=== PATIENT | female | born 1955 | race Caucasian/White ===

== ENCOUNTER 2018-10-16 02:35 | Emergency (ER) | payer MEDICARE, BC ==
--- NOTE | 2018-10-16 03:15 | EDM.PDOC ---
"ED HPI GENERAL MEDICAL PROBLEM - General Chief Complaint: Chest Pain Stated Complaint: CHEST PAINS Time Seen by Provider: 10/16/18 03:04 Source of Information: Reports: Patient History Limitations: Reports: No Limitations - History of Present Illness INITIAL COMMENTS - FREE TEXT/NARRATIVE: Ed with c/o feeling like heart racing, checked BP and 140/ and HR 90 usually HR in 70's. pain left scapula. No chest pain at present , took aspirin at home. No nausea k, seating no SOB or weakness. Also reports that mowing and struck head on large tree branch No loss of consciousness but whipped neck back. 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 No weakness of extremities or tingling no numbenss Left Chest Pain Score (Numeric/FACES): 4 Shoulder Pain Score (Numeric/FACES): 4 - Related Data Allergies Allergy/AdvReac Type Severity Reaction Status Date / Time amoxicillin Allergy Hives Verified 10/16/18 02:56 Home Meds: Home Meds . [No Known Home Meds] 10/16/18 [History] ED ROS GENERAL - Review of Systems Review Of Systems: ROS reveals no pertinent complaints other than HPI. Constitutional: Reports: No Symptoms HEENT: Reports: No Symptoms Respiratory: Denies: Shortness of Breath, Cough Cardiovascular: Reports: Chest Pain, Palpitations Endocrine: Reports: No Symptoms GI/Abdominal: Reports: No Symptoms : Reports: No Symptoms Musculoskeletal: Reports: Neck Pain (resolved), Other (left scapular) Skin: Reports: No Symptoms Neurological: Reports: No Symptoms ED EXAM, GENERAL - Physical Exam Exam: See Below Exam Limited By: No Limitations General Appearance: Alert, No Apparent Distress, Anxious Eye Exam: Bilateral Eye: PERRL Ears: Normal External Exam Nose: Normal Inspection Throat/Mouth: Normal Inspection Head: Atraumatic, Normocephalic Neck: Full Range of Motion. No: Limited Range of Motion, Tender Lateral, Tender Midline Respiratory/Chest: No Respiratory Distress, Lungs Clear, Normal Breath Sounds Cardiovascular: Normal Peripheral Pulses, Regular Rate, Rhythm, No Edema. No: Tachycardia GI/Abdominal: Normal Bowel Sounds, Soft Back Exam: Normal Inspection Extremities: Normal Inspection, Normal Range of Motion Neurological: Alert, Oriented, Normal Cognition, Normal Gait, No Motor/Sensory Deficits Skin Exam: Warm, Dry, Intact, Normal Color Course - Vital Signs Last Recorded V/S: Last Vital Signs Temp 98 F 10/16/18 04:59 Pulse 60 10/16/18 06:29 Resp 14 10/16/18 06:29 BP 104/51 L 10/16/18 06:29 Pulse Ox 100 10/16/18 06:29 - Orders/Labs/Meds Orders: Active Orders 24 hr Category Date Time Status EKG 12 Lead [EKG Documentation Completion] [RC] URGENT Care 10/16/18 03:20 Active EKG Documentation Completion [RC] URGENT Care 10/16/18 06:45 Active CXR [Chest 1V Frontal] [CR] Urgent Exams 10/16/18 02:59 Taken Cervical Spine wo Cont [CT] Urgent Exams 10/16/18 03:31 Taken Labs: Laboratory Tests 10/16/18 10/16/18 10/16/18 Range/Units 02:45 02:45 02:45 WBC 5.4 (5.0-10.0) 10^3/uL RBC 4.22 (4.2-5.4) 10^6/uL Hgb 13.5 (12.0-16.0) g/dL Hct 39.5 (37.0-47.0) % MCV 93.6 (80-100) fL MCH 32.0 (27.0-34.0) pg MCHC 34.2 (33.0-35.0) g/dL Plt Count 235 (150-450) 10^3/uL Neut % (Auto) 48.0 (42.2-75.2) % Lymph % (Auto) 43.3 (20.5-50.1) % Summers % (Auto) 6.8 (2-8) % Eos % (Auto) 1.5 (1.0-3.0) % Baso % (Auto) 0.4 (0.0-1.0) % PT 9.8 (9.0-12.0) SEC INR 1.0 (0.9-1.2) D-Dimer, Quantitative < 100 (0-400) ng/mL Sodium 140 (135-145) mmol/L Potassium 3.3 L (3.6-5.0) mmol/L Chloride 104 (101-111) mmol/L Carbon Dioxide 27.0 (21.0-31.0) mmol/L Anion Gap 12.3 BUN 19 H (7-18) mg/dL Creatinine 0.8 (0.6-1.3) mg/dL Est Cr Clr Drug Dosing 57.99 mL/min Estimated GFR (MDRD) > 60 BUN/Creatinine Ratio 23.75 Glucose 99 (74-105) mg/dL Calcium 9.0 (8.4-10.2) mg/dl Total Bilirubin 0.5 (0.2-1.0) mg/dL AST 24 (10-42) IU/L ALT 15 (10-60) IU/L Alkaline Phosphatase 77 (42-121) IU/L CK-MB (CK-2) (0.4-4.7) ng/mL Troponin I < 0.02 (0.00-0.02) ng/ml Total Protein 6.5 L (6.7-8.2) g/dl Albumin 4.1 (3.2-5.5) g/dl Globulin 2.4 Albumin/Globulin Ratio 1.71 Amylase 72 (28-100) U/L Lipase 42 (22-51) U/L 10/16/18 10/16/18 Range/Units 02:45 06:38 WBC (5.0-10.0) 10^3/uL RBC (4.2-5.4) 10^6/uL Hgb (12.0-16.0) g/dL Hct (37.0-47.0) % MCV (80-100) fL MCH (27.0-34.0) pg MCHC (33.0-35.0) g/dL Plt Count (150-450) 10^3/uL Neut % (Auto) (42.2-75.2) % Lymph % (Auto) (20.5-50.1) % Summers % (Auto) (2-8) % Eos % (Auto) (1.0-3.0) % Baso % (Auto) (0.0-1.0) % PT (9.0-12.0) SEC INR (0.9-1.2) D-Dimer, Quantitative (0-400) ng/mL Sodium (135-145) mmol/L Potassium (3.6-5.0) mmol/L Chloride (101-111) mmol/L Carbon Dioxide (21.0-31.0) mmol/L Anion Gap BUN (7-18) mg/dL Creatinine (0.6-1.3) mg/dL Est Cr Clr Drug Dosing mL/min Estimated GFR (MDRD) BUN/Creatinine Ratio Glucose (74-105) mg/dL Calcium (8.4-10.2) mg/dl Total Bilirubin (0.2-1.0) mg/dL AST (10-42) IU/L ALT (10-60) IU/L Alkaline Phosphatase (42-121) IU/L CK-MB (CK-2) 2.60 (0.4-4.7) ng/mL Troponin I < 0.02 (0.00-0.02) ng/ml Total Protein (6.7-8.2) g/dl Albumin (3.2-5.5) g/dl Globulin Albumin/Globulin Ratio Amylase (28-100) U/L Lipase (22-51) U/L Meds: Medications Discontinued Medications Generic Name Dose Route Start Last Admin Trade Name Freq PRN Reason Stop Dose Admin Acetaminophen 650 mg 10/16/18 04:40 10/16/18 04:44 Tylenol PO 10/16/18 04:41 650 mg NOW ONE Administration Potassium Chloride 20 meq 10/16/18 03:31 10/16/18 03:41 Klor-Con 10 PO 10/16/18 03:32 20 meq ONETIME ONE Administration - Radiology Interpretation Free Text/Narrative:: [facility] Final Radiology Report Call: [phone] assistance Online chat: [email or web address] Name: LILLIANA LOPEZ Age: 63Years F Date: 10/16/2018 SSN: -- : 1955 Study: CT SPINE CERVICAL WO Requesting Physician: BIANKA SNELL Images: [id number] Addl Studies: Provided Clinical History: Contrast: Without Contrast Medium: Contrast Amount: Contrast Method: Page 1 of 2 EXAM: CT Cervical Spine Without Contrast EXAM DATE/TIME: 10/16/2018 3:54 AM CLINICAL HISTORY: 63 years old, female; Other: Neck pain, 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 Radiation optimization: All CT scans at this facility use at least one of these dose optimization techniques: automated exposure control; mA and/or kV adjustment per patient size (includes targeted exams where dose is matched to clinical indication); or iterative reconstruction. COMPARISON: No relevant prior studies available. FINDINGS: Vertebrae: Vertebral body heights are maintained. The dens is intact. No acute fracture. Cervical spine alignment is normal. Discs/Spinal canal/Neural foramina: There is mild degenerative change at the C1- C2 interval. Moderate left and mild right facet hypertrophy C3-C6. Mild disc space narrowing C5-C6 and C6 C7 with small marginal osteophytes. Soft tissues: Unremarkable. Lungs: Lung apices are normal. IMPRESSION: No acute findings. LILLIANA LOPEZ | Final Radiology Report CONFIDENTIALITY STATEMENT This report is intended only for use by the referring physician, and only in accordance with law. If you received this in error, call [phone]. Page 2 of 2 Thank you for allowing us to participate in the care of your patient. Dictated and Authenticated by: Clemencia Caal MD 10/16/2018 4:28 AM Central Time ([place] & [place]) [facility] Final Radiology Report Call: [phone] assistance Online chat: [email or web address] Name: LILLIANA LOPEZ Age: 63Years F Date: 10/16/2018 SSN: -- : 1955 Study: XR CHEST 1 VIEW FRONTAL Requesting Physician: BIANKA SNELL Images: 1 Addl Studies: Provided Clinical History: Contrast: Contrast Medium: Contrast Amount: Contrast Method: CONFIDENTIALITY STATEMENT This report is intended only for use by the referring physician, and only in accordance with law. If you received this in error, call [phone]. Page 1 of 1 EXAM: XR Chest, 1 View EXAM DATE/TIME: 10/16/2018 3:38 AM CLINICAL HISTORY: 63 years old, female; Chest pain; Type not specified TECHNIQUE: Imaging protocol: XR of the chest, 1 view. COMPARISON: No relevant prior studies available. FINDINGS: Lungs: Unremarkable. No consolidation. Pleural space: Unremarkable. No pleural effusion. No pneumothorax. Heart/Mediastinum: Unremarkable. No cardiomegaly. Bones/joints: Unremarkable. IMPRESSION: No acute findings. Thank you for allowing us to participate in the care of your patient. Dictated and Authenticated by: Clemencia Caal MD 10/16/2018 4:21 AM Central Time ([place] & [place]) - Re-Assessments/Exams Free Text/Narrative Re-Assessment/Exam: 10/16/18 07:25 Results discussed with Patient. Repeat troponin pending if negative, discharge home and follow up with primary care. Departure - Departure Time of Disposition: 07:26 Disposition: Home, Self-Care 01 Condition: Good Clinical Impression: Hypokalemia, Palpitations Left scapulocostal sprain Qualifiers: Encounter type: initial encounter Qualified Code(s): S43.82XA - Sprain of other specified parts of left shoulder girdle, initial encounter Cervical muscle strain Qualifiers: Encounter type: initial encounter Qualified Code(s): S16.1XXA - Strain of muscle, fascia and tendon at neck level, initial encounter Forms: ED Department Discharge Additional Instructions: light activity today. follow up in clinic recheck potassium follow up if recurrent chest sustained heart rate greater than 100, elevated blood pressure, dizziness. tylenol 650mg every 4 hours as needed for discomfort - My Orders Last 24 Hours: My Active Orders 10/16/18 02:59 CXR [Chest 1V Frontal] [CR] Urgent 10/16/18 03:20 EKG 12 Lead [EKG Documentation Completion] [RC] URGENT 10/16/18 03:31 Cervical Spine wo Cont [CT] Urgent 10/16/18 06:45 EKG Documentation Completion [RC] URGENT - Assessment/Plan Last 24 Hours: My Active Orders 10/16/18 02:59 CXR [Chest 1V Frontal] [CR] Urgent 10/16/18 03:20 EKG 12 Lead [EKG Documentation Completion] [RC] URGENT 10/16/18 03:31 Cervical Spine wo Cont [CT] Urgent 10/16/18 06:45 EKG Documentation Completion [RC] URGENT"
[2018-10-16 03:16] LABS: ANION GAP 12.3; CHLORIDE,CL 104 mmol/L (101-111); SODIUM,NA 140 mmol/L (135-145)
[2018-10-16] MEDS ORDERED: Potassium Chloride 10 MEQ Tab.ER PO ONE (03:31)
[2018-10-16] MEDS ORDERED: Acetaminophen 325 MG Tab PO ONE (04:40)
== END 2018-10-16 09:30 | disposition home or self-care (01) ==
LOC: DL.ED 02:35
DX: S43.82XA Sprain of other specified parts of left shoulder girdle, initial encounter (principal); S16.1XXA Strain of muscle, fascia and tendon at neck level, initial encounter; R00.2 Palpitations; E87.6 Hypokalemia; Z88.1 Allergy status to other antibiotic agents; W22.8XXA Striking against or struck by other objects, initial encounter
CPT/HCPCS: 36415; 71045; 72125; 80053; 82150; 82553; 83690; 84484; 85025; 85379; 85610; 93005; 99285-25; A9270-GY

== ENCOUNTER 2020-03-20 19:04 | Emergency (ER) | payer MEDICARE, BC ==
--- NOTE | 2020-03-20 19:13 | EDM.PDOC ---
ED HPI GENERAL MEDICAL PROBLEM - General Stated Complaint: AMBULANCE Time Seen by Provider: 03/20/20 19:07 Source of Information: Reports: Patient History Limitations: Reports: No Limitations - History of Present Illness INITIAL COMMENTS - FREE TEXT/NARRATIVE: states pos covid 1-14, had 10 days quarantine went back to work and Sx she had from covid returned. CP/SOB/bilateral thigh-leg heaviness and aches. did get CAT chest with contrast showing no P.E but nothing for legs. tonight felt worse so called EMS. Bilateral Lower Leg Pain Score (Numeric/FACES): 4 - Related Data Allergies Allergy/AdvReac Type Severity Reaction Status Date / Time amoxicillin Allergy Hives Verified 10/16/18 02:56 Home Meds: Home Meds . 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 ED EXAM, GENERAL - Physical Exam Exam: See Below Exam Limited By: No Limitations General Appearance: Alert, WD/WN, Mild Distress, Other (upset) Ears: Hearing Grossly Normal Throat/Mouth: Normal Voice, No Airway Compromise Head: Atraumatic Neck: Non-Tender, Full Range of Motion Respiratory/Chest: No Respiratory Distress, Lungs Clear, Normal Breath Sounds Cardiovascular: Regular Rate, Rhythm GI/Abdominal: Soft, Non-Tender (Female) Exam: Deferred Rectal (Female) Exam: Deferred Back Exam: Full Range of Motion Extremities: Normal Range of Motion, Non-Tender, Other (c/o achyness) Neurological: Alert, Oriented, Normal Cognition, No Motor/Sensory Deficits Psychiatric: Anxious Skin Exam: Warm, Dry, Normal Color Lymphatic: No Adenopathy Course - Vital Signs Last Recorded V/S: Last Vital Signs Temp 35.9 C L 03/20/20 19:12 Pulse 115 H 03/20/20 19:12 Resp 14 01/31/21 19:12 BP 117/61 03/20/20 19:12 Pulse Ox 100 03/20/20 19:12 - Orders/Labs/Meds Labs: Laboratory Tests 03/20/20 03/20/20 03/20/20 Range/Units 19:16 19:16 19:16 WBC 6.3 (5.0-10.0) 10^3/uL RBC 4.28 (4.2-5.4) 10^6/uL Hgb 13.5 (12.0-16.0) g/dL Hct 39.1 (37.0-47.0) % MCV 91.4 (80-100) fL MCH 31.5 (27.0-34.0) pg MCHC 34.5 (33.0-35.0) g/dL Plt Count 313 D (150-450) 10^3/uL Neut % (Auto) 67.2 (42.2-75.2) % Lymph % (Auto) 25.6 (20.5-50.1) % Gilchrist % (Auto) 6.5 (2-8) % Eos % (Auto) 0.5 L (1.0-3.0) % Baso % (Auto) 0.2 (0.0-1.0) % PT 10.8 (9.0-12.0) SEC INR 1.1 (0.9-1.2) APTT 25.7 (22.0-34.0) SEC D-Dimer, Quantitative 130 (0-400) ng/mL Sodium 138 (136-145) mmol/L Potassium 3.5 (3.5-5.1) mmol/L Chloride 102 (98-107) mmol/L Carbon Dioxide 27 (21-32) mmol/L Anion Gap 12.5 (7-13) mEq/L BUN 18 (7-18) mg/dL Creatinine 0.74 (0.55-1.02) mg/dL Est Cr Clr Drug Dosing 61.18 mL/min Estimated GFR (MDRD) > 60 BUN/Creatinine Ratio 24.3 (No establ ref range) Glucose 100 H (74-99) mg/dL Calcium 9.4 (8.5-10.1) mg/dL Total Bilirubin 0.4 (0.2-1.0) mg/dL AST 18 (15-37) U/L ALT 26 (14-59) U/L Alkaline Phosphatase 90 (46-116) U/L Troponin I < 0.017 (0.000-0.056) ng/mL Total Protein 7.0 (6.4-8.2) g/dL Albumin 4.0 (3.4-5.0) g/dL Globulin 3.0 Albumin/Globulin Ratio 1.3 - Re-Assessments/Exams Free Text/Narrative Re-Assessment/Exam: 03/20/20 21:05 results discussed with pt. Departure - Departure Time of Disposition: 21:05 Disposition: Home, Self-Care 01 Condition: Good Clinical Impression: Leg pain, bilateral, Reaction, situational, acute, to stress, Post-COVID syndrome Forms: ED Department Discharge Additional Instructions: 1) rest and try heat or massage to sore areas 2) follow up with clinic 3) recheck if there is any change or concern Sepsis Event Note (ED) - Focused Exam Vital Signs: Vital Signs Temp Pulse Resp BP Pulse Ox 03/20/20 19:12 35.9 C L 115 H 14 117/61 100
[2020-03-20 19:43] LABS: PTT,PARTIAL THROMBOPLSTIN TIME 25.7 SEC (22.0-34.0)
[2020-03-20 19:45] LABS: ANION GAP 12.5 mEq/L (7-13); CHLORIDE,CL 102 mmol/L (98-107); SODIUM,NA 138 mmol/L (136-145)
--- NOTE | 2020-03-20 20:42 | US ---
PROCEDURE INFORMATION: Exam: US Duplex Lower Extremity Veins, Bilateral Exam date and time: 03/20/2020 7:42 PM Age: 64 years old Clinical indication: Pain; Leg, upper; Bilateral; Additional info: Dvt TECHNIQUE: Imaging protocol: Real-time duplex ultrasound of the extremities with 2-D leonardo scale, color Doppler flow and spectral waveform analysis with image documentation. Complete exam focused on the bilateral lower extremity veins. Total images: 54 COMPARISON: No relevant prior studies available. FINDINGS: Right deep veins: Unremarkable. The common femoral, femoral, proximal profunda femoral and popliteal veins are patent without thrombus. Normal Doppler waveforms. Normal compressibility and/or augmentation response. Right superficial veins: Saphenofemoral junction is patent without thrombus. Left deep veins: Unremarkable. The common femoral, femoral, proximal profunda femoral and popliteal veins are patent without thrombus. Normal Doppler waveforms. Normal compressibility and/or augmentation response. Left superficial veins: Saphenofemoral junction is patent without thrombus. Soft tissues: Unremarkable. IMPRESSION: No evidence of deep vein thrombosis.
== END 2020-03-20 21:11 | disposition home or self-care (01) ==
LOC: DL.ED 19:04
DX: M79.605 Pain in left leg (principal); M79.604 Pain in right leg; U07.1 COVID-19; F43.0 Acute stress reaction; F43.20 Adjustment disorder, unspecified; Z88.0 Allergy status to penicillin
CPT/HCPCS: 36415; 80053; 84484; 85025; 85379; 85610; 85730; 93970; 99285-25